=== PATIENT | male | born 1950 | race Caucasian/White ===

== ENCOUNTER → 2017-05-30 | Outpatient (CLI) | payer BC, OTHER ==
[~2017-05-30] MED LIST: AMLO-110 PO; ASPI81TA28 PO; CHOL100010 PO; CHOL4POW4 PO; CRS/10 PO; FINA5TAB PO; FLUT0.15 NAE; LISI-788 PO; METO50TA7 PO; OXYC-57 PO; PREG1CAP28 PO; PREG1CAP70 PO; TAMS0.4C38 PO
[2017-05-30 12:04] LABS: THYROID STIMULATING HORMONE 0.932 uIu/ml (0.300-4.500)
--- NOTE | 2017-06-06 11:04 | CODING QUERY MEDICAL NECESSITY ---
SUPPORTING DIAGNOSIS NEEDED A supporting diagnosis is required for the test/procedure performed on this patient in order for us to be reimbursed by the patient's insurance. Please provide a supporting diagnosis for the following test/procedure listed below next to the test name along with your signature. *If there is no additional diagnosis for this patient that would support the following test/procedure please document that below next to the test/procedure. Test(s)/Procedure(s) that require a supporting diagnosis: * VITAMIN B12 DIAGNOSIS: Provider Signature: Date: Thank you Ania [place] [employer] Once completed, please kindly fax back to [phone] For questions please call [phone]
== END | disposition home or self-care (01) ==
LOC: C.LAB1850 10:50
PROVIDERS: ATTEND Internal Medicine Endocrinology, Diabetes & Metabolism
DX: E78.00 Pure hypercholesterolemia, unspecified (principal); M79.1 Myalgia; G62.9 Polyneuropathy, unspecified; R63.4 Abnormal weight loss

== ENCOUNTER 2017-08-22 11:35 | Inpatient (IN) | payer BC, OTHER ==
[2017-07-28 15:06] VITALS: BMI 31.0
--- NOTE | 2017-07-28 15:57 | PAT Medication Instructions ---
Service Date Jul 28, 2017. Current Home Medication List Amlodipine (Norvasc), 5 MG PO QAM Aspirin (Aspirin Ec), 81 MG PO HS Cholecalciferol (Vitamin D), 2,000 INTER.UNIT PO QAM Cholestyramine (Cholestyramine), 1 DOSE PO UD PRN for QAM Finasteride (Proscar), 5 MG PO QDD Fluticasone Propionate (Nasal) (Flonase Allergy Relief), 1 DOSE AZIZA UD PRN for Seasonal Allergies Lisinopril/Hctz (Zestoretic 20MG/25MG), 1 TAB PO QAM Metoprolol Succ (Toprol Xl) (Toprol-Xl), 50 MG PO BID Oxycodone/Acetaminophen 5MG/325MG (Percocet 5MG/325MG), 1 TABLET PO Q6H PRN for Pain Pregabalin (Lyrica), 75 MG PO QAM Pregabalin (Lyrica), 150 MG PO HS Rosuvastatin Calcium (Crestor), 5 MG PO 3XWK Tamsulosin Hcl (Flomax), 0.4 MG PO HS Medication Instructions For Your Scheduled Surgery - Hold the following medications the morning of surgery: Lisinopril/Hctz (Zestoretic 20MG/25MG), 1 TAB PO QAM Cholecalciferol (Vitamin D), 2,000 INTER.UNIT PO QAM Cholestyramine (Cholestyramine), 1 DOSE PO UD PRN for QAM - Take the following medications the morning of surgery with a sip of water OTHERWISE NOTHING TO EAT OR DRINK AFTER MIDNIGHT: Amlodipine (Norvasc), 5 MG PO QAM Pregabalin (Lyrica), 75 MG PO QAM Metoprolol Succ (Toprol Xl) (Toprol-Xl), 50 MG PO BID Oxycodone/Acetaminophen 5MG/325MG (Percocet 5MG/325MG), 1 TABLET PO Q6H PRN for Pain (use if needed up to 4 hours prior to surgery) Fluticasone Propionate (Nasal) (Flonase Allergy Relief), 1 DOSE AZIZA UD PRN for Seasonal Allergies - Take the following medications as scheduled the night before surgery: Aspirin (Aspirin Ec), 81 MG PO HS Pregabalin (Lyrica), 150 MG PO HS Tamsulosin Hcl (Flomax), 0.4 MG PO HS Metoprolol Succ (Toprol Xl) (Toprol-Xl), 50 MG PO BID Oxycodone/Acetaminophen 5MG/325MG (Percocet 5MG/325MG), 1 TABLET PO Q6H PRN for Pain Finasteride (Proscar), 5 MG PO QDD If you have any questions please call us at [phone] or [phone] or [phone]
[2017-07-28 17:00] LABS: BUN/CREATININE RATIO 20.6 (10-20); CALCIUM 9.5 mg/dl (8.5-10.1); CREATININE 0.79 mg/dl (0.60-1.40); POTASSIUM 4.8 mmol/L (3.5-5.1)
--- NOTE | 2017-07-28 17:13 | DIAGNOSTIC IMAGING REPORT ---
CHEST PREADMISSION(PA/LAT) HISTORY: Preop. COMPARISON: None. FINDINGS: The lungs are clear. Cardiac silhouette is normal in size. No pleural effusions. No pneumothorax. Lumbar spinal fusion hardware is noted. There is S-shaped scoliosis of the spine. IMPRESSION: No acute process. Electronically signed by: Ghassan Glynn M.D. 07/28/2017 5:12 PM Dictated Date/Time: 07/28/2017 5:10 PM
[2017-07-30 17:48] LABS: BASO % 0.1 %; BASO ABS # 0.01 K/uL (0-0.2); COMPLETE YES; EOS % 0.3 %; HEMATOCRIT 41.1 % (42-52); IG% 0.2 %; LYMPH ABS # 1.98 K/uL (1.2-3.4); MEAN CELL VOLUME 90.3 fL (80-100); MEAN CORPUSCULAR HEMOGLOBIN 30.8 pg (25-34); MEAN CORPUSCULAR HGB CONC 34.1 g/dl (32-36); MONO % 7.9 %; NEUT % 74.5 %; PLATELET COUNT 282 K/uL (130-400); RED BLOOD COUNT 4.55 M/uL (4.7-6.1); WHITE BLOOD COUNT 11.67 K/uL (4.8-10.8)
[2017-07-30 17:50] LABS: URINE APPEARANCE CLEAR (CLEAR); URINE BILIRUBIN NEG (NEG); URINE COLOR YELLOW; URINE NITRITE NEG (NEG); URINE SPECIFIC GRAVITY 1.015 (1.000-1.030); UROBILINOGEN NEG (NEG)
[2017-07-30 18:05] LABS: PROTHROMBIN TIME (PATIENT) 10.7 SECONDS (9.0-12.0)
[2017-07-30 18:25] LABS: MANUAL MICROSCOPIC REQUIRED? NO; REVIEW REQ? NO
--- NOTE | 2017-08-21 19:51 | HISTORY & PHYSICAL EXAMINATION ---
DATE OF ADMISSION: 08/22/2017 PREOPERATIVE DIAGNOSIS: Rotator cuff arthropathy of the right shoulder. HISTORY OF PRESENT ILLNESS: Hoang is a very pleasant 67-year-old male who has been having a several-year history of right shoulder pain and weakness. He has been getting injections from an outside orthopedist. He has had an MRI of his shoulder which shows a large retracted, irreparable rotator cuff tear. He also had an MRI of his cervical spine. I diagnosed him with bilateral rotator cuff arthropathy. After failing extensive conservative treatment, he has elected to proceed with a right reverse shoulder arthroplasty. PAST MEDICAL HISTORY: Significant for 3.5 cm nodule on his thyroid, aortic aneurysm, degenerative disc disease of cervical spine, neuropathy and hypertension. PAST SURGICAL HISTORY: Significant for cholecystectomy and two lumbar surgeries. ALLERGIES: LIPITOR. MEDICATIONS: Include Norvasc 5 mg daily, aspirin 81 mg at night, Proscar 5 mg daily, Flonase 1 dose as needed, Zestril 20/25 mg daily, Topral XL 50 mg twice a day, Percocet as needed for pain, Lyrica 75 mg in the morning, Lyrica 150 mg in the evening, Crestor 5 mg 3 times a week, and Flomax 0.4 mg at night. FAMILY HISTORY: Noncontributory. SOCIAL HISTORY: He is , never drinks. He does little activity. REVIEW OF SYSTEMS: He complains of right shoulder pain and weakness. All other pertinent review of systems are negative. PHYSICAL EXAMINATION: GENERAL: He is awake, alert and oriented x3. He is in no apparent distress. He is very pleasant. HEENT: Pupils are equal, round and reactive to light. Extraocular motions are intact. Oral mucosa is pink and moist. HEART: Regular rate per radial pulse. LUNGS: Hilda symmetrically bilaterally with no audible breath sounds. ABDOMEN: Soft, nontender, nondistended. MUSCULOSKELETAL: On physical examination of right shoulder, about 140 degrees of forward elevation. He is able to abduct his arm, but he has a positive lag sign and difficulty with external rotation in abduction. He has a positive hornblower sign as well. He has 3/5 muscle strength with full can testing, 3/5 muscle strength with external rotation. Mildly positive belly press test. IMAGING DATA: X-rays and MRI of the shoulder show advanced rotator cuff arthropathy with massive irreparable rotator cuff tear and superior migration of the humeral head of the glenoid. IMPRESSION: Right rotator cuff arthropathy. PLAN: We will proceed with a Biomet comprehensive reverse right shoulder arthroplasty. Postoperatively, he will be placed in arm sling and kept overnight for postoperative medical management. RAISSA
[~2017-08-22] VITALS: Ht 162.6 cm; Wt 82.3 kg
[2017-08-22] VITALS (8 sets, daily range): BP systolic 113–136; BP diastolic 70–81; PULSE 60–103; TEMP 36.4–36.7; O2SAT 91–95; Ht 162.6 cm; Wt 82.3 kg
[2017-08-22] MEDS: TRANEXAMIC ACID INJ 1,000 MG in SODIUM CHLORIDE 0.9% 100ML 100 ML IV SCH ×2 (06:30→14:09)
[~2017-08-22 11:35] MED LIST changes: +ACETAMINOPHEN 500 MG TAB PO SCH; +ATROPINE SULFATE 0.1 MG/ML 5ML SYR IV PRN; +CEFAZOLIN 2000 MG/60 ML D5W 60 ML IV SCH; +DEXAMETHASONE SOD INJ 4 MG/ML VIAL ONE; +EpHEDrine SULFATE INJ 50 MG/ML AMP IV PRN; +FAMOTIDINE 20 MG TAB PO SCH; +FENTANYL CITRATE INJ 50 MCG/1 ML 2 ML VIAL IV PRN; +GABAPENTIN 300 MG CAP PO SCH; +HYDROmorphone INJ 1 MG/ML SYR IV PRN; +LABETALOL HCL IV 5 MG/ML 20ML IV PRN; +LACTATED RINGER'S 1000ML 1,000 ML IV SCH; +LACTATED RINGER'S 1000ML IV SCH; +MEPERIDINE HCL 25 MG/ML CARP IV PRN; +ONDANSETRON INJ 2 MG/ML 2 ML VIAL IV PRN; +ROPIVACAINE 0.5% 5 MG/ML 30 ML VIAL ONE; +ROPIVACAINE 5MG/ML 30 ML 150 MG, BUPIVACAINE/EPINEPHR 0.5% MPF 30 ML, KETOROLAC TROMETH... INFIL SCH
--- NOTE | 2017-08-22 11:51 | History & Physical Bridge Note ---
H&P Re-Evaluation Bridge Note: I have examined the patient, reviewed the History & Physical and in the interval since the performance of the History & Physical I have noted the following changes of clinical significance: No changes noted
[2017-08-22] MEDS ORDERED: MIDAZOLAM HCL 1 MG/ML 2ML VIAL ONE (13:54)
[2017-08-22] MEDS ORDERED: PROPOFOL IV EMULSION 10 MG/ML 20 ML VIAL IV ONE (13:57)
[2017-08-22] MEDS ORDERED: FENTANYL CITRATE INJ 50 MCG/1 ML 2 ML VIAL ONE ×2 (13:58→15:21)
[2017-08-22] MEDS ORDERED: ROCURONIUM BROMIDE 10 MG/ML 5 ML VIAL IV ONE (13:58)
[2017-08-22] MEDS ORDERED: LIDOCAINE HCL 2% 2 ML VIAL (20MG/ML) ONE (13:58)
[2017-08-22] MEDS ORDERED: ORTHO JOINT ANESTHETIC ONE (14:31)
[2017-08-22] MEDS ORDERED: BACITRACIN 50000 UNIT VIAL ONE (14:31)
[2017-08-22] MEDS ORDERED: EpHEDrine SULFATE INJ 50 MG/ML AMP ONE (15:32)
[2017-08-22] MEDS ORDERED: PHENYLEPHRINE HCL INJ 10 MG/ML VIAL ONE (15:32)
[2017-08-22] MEDS ORDERED: DEXAMETHASONE SOD INJ 4 MG/ML VIAL ONE (16:24)
[2017-08-22] MEDS ORDERED: ONDANSETRON INJ 2 MG/ML 2 ML VIAL ONE (16:24)
--- NOTE | 2017-08-22 16:42 | [facility] Post Operative Brief Note ---
Immediate Operative Summary Operative Date Aug 22, 2017. Pre-Operative Diagnosis Right rotator cuff arthropathy Post-Operative Diagnosis Right rotator cuff arthropathy Procedure(s) Performed Reverse Right Total Shoulder Arthroplasty Surgeon Dr. Dunbar Pairer Surgeon(s) Jordy Zazueta PA-C Estimated Blood Loss 250 cc Findings as above Specimens A: Right Femoral Head Complication(s) None Disposition Recovery Room / PACU
[2017-08-22] MEDS ORDERED: ONDANSETRON INJ 2 MG/ML 2 ML VIAL IV PRN (16:45)
[2017-08-22] MEDS ORDERED: SOD PHOSPHATE/SOD BIPHOSPHATE ENEMA 132 ML BTL PR PRN (16:45)
[2017-08-22] MEDS ORDERED: MoRPHine SULFATE 2 MG/ML CARP IV PRN (16:45)
[2017-08-22] MEDS ORDERED: MAGNESIUM HYDROXIDE SUSP 30 ML UDC PO PRN (16:45)
[2017-08-22] MEDS ORDERED: BISACODYL 10 MG SUPP PR PRN (16:45)
[2017-08-22] MEDS ORDERED: NALOXONE HCL 0.4 MG/1 ML VIAL/CARP IV PRN (16:45)
[2017-08-22] MEDS ORDERED: OXYCODONE HCL IR 5 MG TAB (IMMEDIATE RELEASE) PO PRN (16:45)
[2017-08-22] MEDS ORDERED: FLUTICASONE PROPIONATE NA SPR 16 GM BTL NAE PRN (16:45)
[2017-08-22] MEDS ORDERED: METOCLOPRAMIDE HCL INJ 5 MG/ML 2 ML VIAL IV PRN (16:45)
[2017-08-22] MEDS ORDERED: NEOSTIGMINE METHYLSULFATE 5 MG/5 ML SYR ONE (17:35)
[2017-08-22] MEDS ORDERED: ESMOLOL HCL 10 MG/ML 10 ML VIAL ONE (17:35)
[2017-08-22] MEDS ORDERED: GLYCOPYRROLATE INJ 0.2 MG/ML VIAL ONE (17:35)
--- NOTE | 2017-08-22 18:04 | DIAGNOSTIC IMAGING REPORT ---
R SHOULDER MIN 2 VIEWS ROUTINE CLINICAL HISTORY: Post shoulder surgery COMPARISON STUDY: None. FINDINGS: 2 views of the right shoulder demonstrate a reverse total shoulder arthroplasty. The hardware is intact. No fracture or dislocation. Skin janice and surgical drains are in place. IMPRESSION: Status post right reverse total shoulder arthroplasty. No evidence for hardware complication. Electronically signed by: Ghassan Glynn M.D. 08/22/2017 6:02 PM Dictated Date/Time: 08/22/2017 6:01 PM
--- NOTE | 2017-08-22 18:09 | Anesthesiology Progress Note ---
Anesthesia Post Op Note Date & Time Aug 22, 2017 at 18:09 Vital Signs Pain Intensity: 0 Vital Signs Past 12 Hours Date Time Temp Pulse Resp B/P (MAP) Pulse Ox O2 Delivery O2 Flow Rate FiO2 08/22/17 18:00 36.2 08/22/17 17:50 36.2 67 18 143/82 97 Oxymask 10 08/22/17 17:40 99 18 141/82 100 Oxymask 10 08/22/17 17:30 107 18 159/92 100 Oxymask 10 08/22/17 17:20 36.4 109 18 153/96 100 Oxymask 10 08/22/17 12:32 93 Room Air 08/22/17 12:21 36.5 Notes Mental Status: alert / awake / arousable, participated in evaluation Pt Amnestic to Procedure: Yes Nausea / Vomiting: adequately controlled Pain: adequately controlled Airway Patency, RR, SpO2: stable & adequate BP & HR: stable & adequate Hydration State: stable & adequate Anesthetic Complications: no major complications apparent
[2017-08-22] MEDS: POTASSIUM CHLORIDE INJ 10 MEQ in SODIUM CHLORIDE 0.9% 1000ML 1,000 ML IV SCH (20:03)
[2017-08-22] MEDS: KETOROLAC TROMETHAMINE 15 MG/ML VIAL IV. SCH (20:03)
[2017-08-22] MEDS ORDERED: SENNA 8.6 MG TAB PO SCH (21:00)
[2017-08-22] MEDS ORDERED: PREGABALIN 150 MG CAP PO SCH (21:00)
[2017-08-22] MEDS ORDERED: ASPIRIN 81 MG ECTAB PO SCH (21:00)
[2017-08-22] MEDS ORDERED: TAMSULOSIN HCL 0.4 MG CAP PO SCH (21:00)
[2017-08-22] MEDS: DOCUSATE SODIUM 100 MG CAP PO SCH (21:31)
[2017-08-22] MEDS: METOPROLOL SUCC 50MG EXT REL TAB PO SCH (21:32)
[2017-08-22] MEDS: ACETAMINOPHEN IV 1,000 MG in EMPTY BAG 0 ML IV SCH (21:33)
[2017-08-22] MEDS: CEFAZOLIN IV 2,000 MG in DEXTROSE 5% 50ML 50 ML IV SCH (21:53)
--- NOTE | 2017-08-22 22:26 | OPERATIVE REPORT ---
DATE OF OPERATION: 08/22/2017 PREOPERATIVE DIAGNOSIS: Rotator cuff arthropathy of the right shoulder. POSTOPERATIVE DIAGNOSIS: Same. PROCEDURE: Right reverse shoulder arthroplasty. SURGEON: Dr. Hiren Dunbar. CLIENT RELATIONSHIP EXECUTIVE: Jordy Zazueta PA-C, whose assistance was necessary for retraction and closure. ANESTHESIA: General with a right interscalene nerve block. COMPLICATIONS: None. CONDITION: Stable to PACU. IMPLANTS USED: I used a Biomet comprehensive reverse right shoulder arthroplasty system with a size 25 mm mini baseplate with a 30 mm central screw and 3 peripheral locking screws. There was a standard eccentric 36 mm glenosphere, a 17 mm mini pressfit stem with a 44 standard humeral tray and a +3 retentive bearing. No cement was used during the case. INDICATIONS: Hoang is a pleasant 67-year-old male who presented to my office with chronic right shoulder pain and weakness. X-rays and clinical examination and MRI were diagnostic for rotator cuff arthropathy. After failing conservative treatment, he elected to undergo a reverse right shoulder arthroplasty. OPERATION AND FINDINGS: On 08/22/2017, he arrived at [facility] for the above procedure. He was seen in the preoperative holding area and the operative extremity was identified and signed was a preoperative antibiotic and a right interscalene nerve block. He was taken back to the operating room, laid on the table in supine position and put under general anesthesia. He was then put into the beachchair position. The right shoulder was prepped and draped in sterile fashion. Time-out was done and the patient and operative extremity was properly identified. A deltopectoral approach was used. Dissection was taken down through the fascia and the anterior shoulder was exposed. The subscapularis was partially torn and the remainder of it was tenotomized off the lesser tuberosity. The supraspinatus, infraspinatus down to the teres minor was completely torn. The biceps tendon was absent. The proximal humerus was exposed. Sequential reaming up to a size 17 reamer was done. Offset reamer, a proximal humeral resection guide was placed and the proximal humerus was resected at 135 degrees of inclination and 20 degrees of retroversion. The glenoid was then exposed. Time was spent doing a complete circumferential capsular and labral release. A guide was placed on the inferior portion of the glenoid and a guide pin was placed at 10 degrees of inclination. A 25 mm mini base plate was then reamed and the final baseplate was impacted into place. A 30 mm central screw was placed followed by 3 peripheral locking screws. A 36 mm eccentric glenosphere was then impacted into place. The proximal humerus was once again exposed. Sequential broaching up to a size 17 broach was done. Several different trial trays were used and a size +3 retentive seemed to be the best fit. The proximal humerus was dislocated and the final size 17 mini stem was impacted into place. A +3 retentive bearing was snapped onto the 44 standard humeral tray and the ring lock mechanism was engaged. The humeral tray was then placed on top of the humeral stem and the shoulder was reduced. It was brought through a full range of motion and felt to be stable. The subscapularis was then tenodesed back to the lesser tuberosity with transosseous FiberWire sutures. The axillary nerve was palpated. The surrounding soft tissues were injected with 100 mL of an orthopedic pain control cocktail. Intolerant joint was then irrigated with 3 liters of normal saline solution with bacitracin. A drain was placed. Skin was then closed with 2-0 Vicryl, 3-0 V-Loc suture and janice. He was placed in a soft dressing and regular arm sling. He was then extubated, transferred to a litter and taken to the postanesthesia care unit in stable condition and tolerated the procedure well. I attest to the content of the Intraoperative Record and any orders documented therein. Any exception s are noted below.
[2017-08-23] MEDS: KETOROLAC TROMETHAMINE 15 MG/ML VIAL IV. SCH ×2 (01:41→08:00)
[2017-08-23 03:13] VITALS: BP 121/72; PULSE 60; TEMP 36.5; O2SAT 92
[2017-08-23] MEDS: CEFAZOLIN IV 2,000 MG in DEXTROSE 5% 50ML 50 ML IV SCH (05:28)
[2017-08-23] MEDS: ACETAMINOPHEN IV 1,000 MG in EMPTY BAG 0 ML IV SCH (05:29)
[2017-08-23] MEDS: POTASSIUM CHLORIDE INJ 10 MEQ in SODIUM CHLORIDE 0.9% 1000ML 1,000 ML IV SCH (05:29)
[2017-08-23 05:52] LABS: HEMATOCRIT 34.8 % (42-52); MEAN CELL VOLUME 88.5 fL (80-100); MEAN CORPUSCULAR HEMOGLOBIN 30.8 pg (25-34); MEAN CORPUSCULAR HGB CONC 34.8 g/dl (32-36); MEAN PLATELET VOLUME 8.4 fL (7.4-10.4); PLATELET COUNT 190 K/uL (130-400); RED BLOOD COUNT 3.93 M/uL (4.7-6.1)
[2017-08-23 06:27] LABS: BUN/CREATININE RATIO 25.2 (10-20); CALCIUM 8.5 mg/dl (8.5-10.1); CREATININE 0.77 mg/dl (0.60-1.40); POTASSIUM 3.9 mmol/L (3.5-5.1)
[2017-08-23 06:59] VITALS: BP 137/76; PULSE 66; TEMP 36.8; O2SAT 95
[2017-08-23] MEDS ORDERED: OXYC-57 PO (07:51)
--- NOTE | 2017-08-23 07:53 | Discharge Instructions ---
Discharge Instructions Date of Service Aug 23, 2017. Admission Reason for Admission: Right Shoulder Full Thickness Rotato Cuff Tear Discharge Discharge Diagnosis / Problem: Right total shoulder Discharge Goals Goal(s): Decrease discomfort, Improve function Activity Recommendations Activity Limitations: as noted below . Instructions / Follow-Up Instructions / Follow-Up Activity and Therapy Recommendations: * Wear your sling for 3 weeks, unless otherwise instructed. You may remove your sling to shower and to dress, but otherwise, you should be in your sling at all times, including while sleeping * The shoulder replacement is very stable and you can use your hand while in the sling * Physical Therapy should start about 3-5 days from your day of surgery. Therapy will last about 8-12 weeks * You were shown a series of exercises in the hospital. Do these exercises daily including the exercises you were shown in physical therapy. Medications: * Narcotic You will likely be sent home from the hospital with a prescription for the narcotic pain medication that worked best throughout your stay. * Other medications may be prescribed for specific circumstances. If you have any questions, please call the office at . * Resume previous home medications unless otherwise instructed Showering: You may shower 5 days from the day of surgery. Let the soapy shower water run over the janice. Do not scrub or soak the incision. Things To Watch For: * Drainage from the incision site that occurs more than one week after your surgery. * Increased redness at the incision site. * Fever above 102 degrees Fahrenheit. * Unusual chest pain or shortness of breath. * Call [facility] at with any of the above problems Follow-Up Visit: Follow-up with Dr. Dunbar 2-3 weeks after your day of surgery. An appointment was probably scheduled when you signed-up for surgery in the office. If you have any questions call Office Instructions: More detailed instructions as well as Frequently Asked Questions were provided in a folder by our office when you signed-up for surgery. Please review these instructions when you get home. If you have any further questions or concerns, please feel free to call the office at [phone] Current Hospital Diet Patient's current hospital diet: Regular Diet Discharge Diet Recommended Diet: Regular Diet Procedures Procedures Performed: Reverse Right Total Shoulder Arthroplasty Pending Studies Studies pending at discharge: no Medical Emergencies . Who to Call and When: Medical Emergencies: If at any time you feel your situation is an emergency, please call 911 immediately. . Non-Emergent Contact Non-Emergency issues call your: Surgeon Call Non-Emergent contact if: wound has increased drainage, wound has increased redness . "Provider Documentation" section prepared by Hiren Dunbar. . VTE Core Measure Inpt VTE Proph given/why not?: Treatment not indicated
[2017-08-23] MEDS: DOCUSATE SODIUM 100 MG CAP PO SCH (08:01)
[2017-08-23] MEDS: METOPROLOL SUCC 50MG EXT REL TAB PO SCH (08:02)
--- NOTE | 2017-08-23 08:34 | PROGRESS NOTE ---
DATE: 08/23/2017 CHIEF COMPLAINT: Status post right reverse shoulder arthroplasty postop day #1. PROGRESS: Hoang was seen and examined at bedside today. Overall, he is doing very well. He has little to no pain in his right shoulder. He was able to sleep last night and has no complaints. PHYSICAL EXAMINATION: RIGHT SHOULDER: The dressing is clean and dry and the drain is to suction. He is wearing a sling as instructed. His radial, median and ulnar nerves were all checked and intact at his wrist. His axillary nerve was not checked yet. LABORATORY DATA: He has an H&H today at 12.1 and 34.8. His glucose is 118. His vital signs are all stable on room air. He is voiding on his own. X-rays postoperatively of the right shoulder showed the prosthesis to be in anatomical alignment without any evidence of fracture, dislocation or loosening. IMPRESSION: Status post reverse right shoulder arthroplasty postop day #1. PLAN: At this point, he is doing very well. Physical therapy will do hand, wrist, elbow and pendulum exercises with him today. The nursing staff will change the dressing, pull the drain and discharge him to home later this morning.
[2017-08-23] MEDS ORDERED: LISINOPRIL/HCTZ 20/25MG TAB PO SCH (09:00)
[2017-08-23] MEDS ORDERED: PANTOprazole SOD 40 MG TAB PO SCH (09:00)
[2017-08-23] MEDS ORDERED: PREGABALIN 75 MG CAP PO SCH (09:00)
[2017-08-23] MEDS ORDERED: AMLODIPINE BESYLATE 5 MG TAB PO SCH (09:00)
[2017-08-23] MEDS ORDERED: CHOLECALCIFEROL 1000 INTER.UNIT TAB PO SCH (09:00)
[2017-08-23] MEDS ORDERED: MULTIVITAMIN TAB PO SCH (09:00)
--- NOTE | 2017-08-23 09:28 | DISCHARGE SUMMARY ---
DISCHARGE DIAGNOSIS: Rotator cuff arthropathy of the right shoulder. PROCEDURE: Reverse right shoulder arthroplasty on 08/22/[address] Hiren Dunbar. DISCHARGE INSTRUCTIONS: 1. Percocet 5/325 every 6 hours as needed for pain. 2. Aspirin 81 mg at night. 3. Norvasc 5 mg daily. 4. Vitamin D 2000 units daily. 5. Proscar 5 mg daily. 6. Flonase 50 mcg spray as needed. 7. Zestoretic 20/25 mg daily. 8. Toprol 50 mg twice a day. 9. Lyrica 75 mg daily. 10. Lyrica 150 mg at night. 11. Crestor 5 mg 3 times a week. 12. Flomax 0.4 mg at night. 13. Right arm sling for 3 weeks. 14. Follow up with Dr. Dunbar in 2 weeks. 15. Call the office of Dr. Dunbar with any questions or concerns. HOSPITAL COURSE: Hoang is a pleasant 67-year-old male who presented to my office with complaints of chronic right shoulder pain and weakness. X-rays, MRI and clinical examination were all diagnostic for rotator cuff arthropathy of the right shoulder. After failing years of conservative treatment, he elected to proceed with a reverse right shoulder arthroplasty. On 08/22/2017, he arrived at [facility] and underwent a reverse right shoulder arthroplasty without complications. He had a general anesthetic and a right interscalene nerve block. Postoperatively, he was placed in an arm sling and discharged to general orthopedic floor. His hospital course was uneventful. On postop day #1, his H&H was stable at 12.1 and 34.8. He was having very little pain in the shoulder and he was neurovascularly intact. He was seen by physical therapy. The nursing staff can change the dressing and pull the drain. He was subsequently discharged to home with the above instructions.
[2017-08-23 09:43] VITALS: BP 137/76; PULSE 66; TEMP 36.8; O2SAT 95
[2017-08-23] MEDS ORDERED: FINASTERIDE 5 MG TAB PO SCH (17:45)
== END 2017-08-23 10:45 | disposition home or self-care (01) | DRG 483 ==
LOC: C.ACU 11:35 → C.3E 12:00 → ENRESERV 17:49
PROVIDERS: ADMIT Orthopaedic Surgery; ATTEND Orthopaedic Surgery
PROC: 0RRJ00Z Replacement of Right Shoulder Joint with Reverse Ball and Socket Synthetic Substitute, Open Approach (ICD-10-PCS; principal; 2017-08-22 13:50)
DX: M19.011 Primary osteoarthritis, right shoulder (principal); I10 Essential (primary) hypertension; G62.9 Polyneuropathy, unspecified; Z79.82 Long term (current) use of aspirin

== ENCOUNTER → 2017-10-31 | Outpatient (CLI) | payer BC, OTHER ==
[~2017-10-31] MED LIST changes: -ACETAMINOPHEN 500 MG TAB PO SCH; -ATROPINE SULFATE 0.1 MG/ML 5ML SYR IV PRN; -CEFAZOLIN 2000 MG/60 ML D5W 60 ML IV SCH; -DEXAMETHASONE SOD INJ 4 MG/ML VIAL ONE; -EpHEDrine SULFATE INJ 50 MG/ML AMP IV PRN; -FAMOTIDINE 20 MG TAB PO SCH; -FENTANYL CITRATE INJ 50 MCG/1 ML 2 ML VIAL IV PRN; -GABAPENTIN 300 MG CAP PO SCH; -HYDROmorphone INJ 1 MG/ML SYR IV PRN; -LABETALOL HCL IV 5 MG/ML 20ML IV PRN; -LACTATED RINGER'S 1000ML 1,000 ML IV SCH; -LACTATED RINGER'S 1000ML IV SCH; -MEPERIDINE HCL 25 MG/ML CARP IV PRN; -ONDANSETRON INJ 2 MG/ML 2 ML VIAL IV PRN; -ROPIVACAINE 0.5% 5 MG/ML 30 ML VIAL ONE; -ROPIVACAINE 5MG/ML 30 ML 150 MG, BUPIVACAINE/EPINEPHR 0.5% MPF 30 ML, KETOROLAC TROMETH... INFIL SCH
== END | disposition home or self-care (01) ==
LOC: C.LABMFLN 11:46
PROVIDERS: ATTEND Family Medicine
DX: R97.20 Elevated prostate specific antigen [PSA] (principal)

== ENCOUNTER → 2017-12-08 | Outpatient (CLI) | payer BC, OTHER ==
[2017-12-08 18:19] LABS: BASO % 0.2 %; BASO ABS # 0.02 K/uL (0-0.2); EOS % 0.6 %; EOS ABS # 0.05 K/uL (0-0.5); HEMATOCRIT 35.3 % (42-52); HEMOGLOBIN 11.6 g/dL (14.0-18.0); IG# 0.02 K/uL (0.00-0.02); LYMPH % 18.5 %; LYMPH ABS # 1.52 K/uL (1.2-3.4); MEAN CELL VOLUME 85.1 fL (80-100); MEAN CORPUSCULAR HGB CONC 32.9 g/dl (32-36); MEAN PLATELET VOLUME 8.7 fL (7.4-10.4); MONO % 8.3 %; MONO ABS # 0.68 K/uL (0.11-0.59); NEUT % 72.2 %; NEUT ABS # 5.94 K/uL (1.4-6.5); PLATELET COUNT 436 K/uL (130-400); RED CELL DISTRIBUTION WIDTH CV 16.7 % (11.5-14.5); RED CELL DISTRIBUTION WIDTH SD 51.6 fL (36.4-46.3); WHITE BLOOD COUNT 8.23 K/uL (4.8-10.8)
[2017-12-08 19:02] LABS: ALT/SGPT 18 U/L (12-78); AST/SGOT 12 U/L (15-37); BLOOD UREA NITROGEN 18 mg/dl (7-18); CALCIUM 9.3 mg/dl (8.5-10.1); CARBON DIOXIDE 28 mmol/L (21-32); CREATININE 0.76 mg/dl (0.60-1.40); GLUCOSE 89 mg/dl (70-99); POTASSIUM 3.9 mmol/L (3.5-5.1); SODIUM 136 mmol/L (136-145)
[2017-12-08 19:05] LABS: ALKALINE PHOSPHATASE 78 U/L (45-117)
[2017-12-09 06:09] LABS: HEMOGLOBIN A1C 5.9 % (4.5-5.6)
== END | disposition home or self-care (01) ==
LOC: C.LABMFLN 16:02
PROVIDERS: ATTEND Family Medicine
DX: G62.9 Polyneuropathy, unspecified (principal); I10 Essential (primary) hypertension

== ENCOUNTER → 2018-01-26 | Outpatient (CLI) | payer BC, OTHER ==
[~2018-01-26] MED LIST changes: -METO50TA7 PO; +METO50TA8 PO
--- NOTE | 2018-01-26 14:21 | DIAGNOSTIC IMAGING REPORT ---
ULTRASOUND-GUIDED FINE-NEEDLE ASPIRATION THYROID CLINICAL HISTORY: Mixed cystic and solid left thyroid nodule. COMPARISON STUDY: Ultrasound of the neck 03/21/2017 from outside hospital. PROCEDURE: The risks, benefits, and alternatives to the procedure were discussed with the patient. Written informed consent was obtained. The patient was placed supine in ultrasound, and the 2.2 cm mixed cystic and solid nodule of the posterior left lobe of the thyroid was localized by ultrasound and selected for fine needle aspiration. The left neck was prepped and draped in the usual sterile fashion. The nodule was aspirated under ultrasound guidance with three passes utilizing 25-gauge needles. Specimens were reviewed by the pathologist in real-time and deemed adequate for diagnosis. The patient tolerated the procedure well and left the department in satisfactory condition. IMPRESSION: Completed fine-needle aspiration of a left thyroid nodule as above. The above report was generated using voice recognition software. It may contain grammatical, syntax or spelling errors. Electronically signed by: Luis Alberto Farooq M.D. 01/26/2018 2:20 PM Dictated Date/Time: 01/26/2018 2:18 PM
== END | disposition home or self-care (01) ==
LOC: C.ULTR 12:00
PROVIDERS: ATTEND Internal Medicine Endocrinology, Diabetes & Metabolism
DX: E04.1 Nontoxic single thyroid nodule (principal); D34 Benign neoplasm of thyroid gland

== ENCOUNTER → 2018-02-18 | Outpatient (CLI) | payer BC, OTHER ==
[2018-02-18 18:05] LABS: BASO % 0.3 %; BASO ABS # 0.02 K/uL (0-0.2); EOS % 1.5 %; EOS ABS # 0.11 K/uL (0-0.5); HEMATOCRIT 39.3 % (42-52); HEMOGLOBIN 13.4 g/dL (14.0-18.0); IG# 0.01 K/uL (0.00-0.02); LYMPH % 27.6 %; LYMPH ABS # 2.03 K/uL (1.2-3.4); MEAN CELL VOLUME 84.7 fL (80-100); MEAN CORPUSCULAR HEMOGLOBIN 28.9 pg (25-34); MEAN CORPUSCULAR HGB CONC 34.1 g/dl (32-36); MEAN PLATELET VOLUME 8.9 fL (7.4-10.4); MONO % 8.4 %; MONO ABS # 0.62 K/uL (0.11-0.59); NEUT % 62.1 %; NEUT ABS # 4.56 K/uL (1.4-6.5); PLATELET COUNT 251 K/uL (130-400); RED CELL DISTRIBUTION WIDTH CV 15.5 % (11.5-14.5); RED CELL DISTRIBUTION WIDTH SD 48.1 fL (36.4-46.3); WHITE BLOOD COUNT 7.35 K/uL (4.8-10.8)
== END | disposition home or self-care (01) ==
LOC: C.LABMFLN 16:47
PROVIDERS: ATTEND Family Medicine
DX: D51.9 Vitamin B12 deficiency anemia, unspecified (principal)